=== PATIENT | male | born 1940 | race Caucasian/White ===

== ENCOUNTER 2017-07-13 07:13 | Day surgery (SDC) | payer BC ==
[2017-07-13] MEDS ORDERED: LR 1,000 ML IV ONE (07:35)
[2017-07-13] MEDS ORDERED: LIDOCAINE 1% 2 ML INJ ID PRN (07:35)
[2017-07-13] MEDS ORDERED: LIDOCAINE 2% 5 ML SDV ONE (08:28)
[2017-07-13] MEDS ORDERED: PROPOFOL 200 MG/20 ML VIAL ONE ×2 (08:28)
--- NOTE | 2017-07-13 09:40 | GPN ---
[f rep st] PROCEDURE NOTE Corrected report PREPROCEDURE DIAGNOSIS: Left lower abdominal pain. POSTPROCEDURE DIAGNOSES: 1. Mild left-sided diverticulosis. 2. A 2 mm polyp, status post removal. PROCEDURE: Colonoscopy with biopsies. ANESTHESIA: Monitored anesthesia care. COMPLICATIONS: None. BLOOD LOSS: Minimal. BIOPSIES TAKEN: Yes. INDICATIONS: The patient is a 76-year-old male with a history of left lower quadrant abdominal pain. He also has a history of polyps. He is here today for a diagnostic colonoscopy. The risks and benefits of the procedure were discussed with the patient. Consent obtained. Risks include but not limited to bleeding, perforation, aspiration, sedation. DESCRIPTION OF PROCEDURE: The adult colonoscope was advanced to the terminal ileum, which appeared normal. The ileocecal valve, appendiceal orifice, cecum appeared normal. There was a 2 mm polyp in the ascending colon, which was removed using cold biopsy forceps, sent off to Pathology. The hepatic flexure, transverse colon, splenic flexure, appeared normal. He had very mild left- sided diverticulosis. Retroflexed views in the rectum were normal. IMPRESSION: 1. A 2 mm polyp in ascending colon, status post removal. 2. Mild left-sided diverticulosis. RECOMMENDATIONS: 1. Advance diet as tolerated. 2. Discharge to home with escort. 3. High-fiber diet. Avoid constipation. 4. Follow up the final pathology results. Results available within 10 days. 5. Repeat colonoscopy in 5 years given personal history of polyps. Thank you for allowing me to participate in the care of your patient. Please do not hesitate to call with questions. /[id number]/MODL Alessandro acc#, 07/27/17, nelly GRADY
[2017-07-13 09:53] VITALS: TEMP 97.7
[2017-07-13 11:40] VITALS: BP 174/86; PULSE 55; RESP 17; O2SAT 97
== END 2017-07-13 11:24 | disposition home or self-care (01) ==
LOC: FSGY 07:13
PROVIDERS: ATTEND Internal Medicine Gastroenterology
PROC: 0DBK8ZX Excision of Ascending Colon, Via Natural or Artificial Opening Endoscopic, Diagnostic (ICD-10-PCS; principal; 2017-07-13 08:30)
DX: D12.2 Benign neoplasm of ascending colon (principal); K57.32 Diverticulitis of large intestine without perforation or abscess without bleeding
CPT/HCPCS: J2704

== ENCOUNTER 2017-08-07 22:51 | Inpatient (IN) | payer OTHER, BC ==
--- NOTE | 2017-08-07 23:04 | EDPHY ---
H & P Stated Complaint: cp HPI/ROS: Chief Complaint: Chest pain HPI: 76-year-old male with a past medical history of coronary artery disease status post NC and CABG who had 1 minutes of left-sided chest pain earlier this evening. It was an 8/10. He also developed some tingling in his fingers. He does not usually get chest pain or angina. Occasionally gets some shortness of breath at rest but none associated with this. He also felt very hot and flushed in his face. Did not come study. Pain resolved on its own prior to EMS arrival. They gave him 324 of aspirin. Right now is complaining of some GI upset secondary to the aspirin. Recent illness. No travel. No fevers or chills. No leg pain or swelling. No dyspnea on a exertion. Does have 2 pillow orthopnea which is stable for him. My ROS PMH: Coronary artery disease status post CABG, lung cancer, sleep apnea, COPD, diverticulitis, gastritis, osteoarthritis Social History: No smoking, occasional alcohol, no recreational drug use Family History: non-contributory Physical Exam: Gen: Awake, Alert, No Distress HEENT: Nose: no rhinorrhea Eyes: PERRLA, EOMI Mouth: Moist mucosa Neck: Supple, no JVD Chest: nontender, lungs clear to auscultation Heart: S1, S2 normal, no murmur Abd: Soft, non-tender, no guarding Back: no CVA tenderness, no midline tenderness Ext: no edema, non-tender Skin: no rash Neuro: CN II-XII intact, Sensation grossly intact, Strength 5/5 in bilateral upper and lower extremities - Personal History Current Tetanus Diphtheria and Acellular Pertussis (TDAP): Yes - Medical/Surgical History Hx Diabetes: No Other PMH: cagag, lung ca, arthritis,gastritis,diverticulitis - Social History Smoking Status: Former smoker Constitutional: Initial Vital Signs Temperature (C) 36.6 C 08/07/17 22:51 Heart Rate 62 08/07/17 22:51 Respiratory Rate 16 08/07/17 22:51 Blood Pressure 212/111 H 08/07/17 22:51 O2 Sat (%) 96 08/07/17 22:51 O2 Delivery Mode Room Air O2 (L/minute) 2 Allergies/Adverse Reactions: No Known Allergies Allergy (Unverified 08/07/17 22:55) Home Medications: Medication Instructions Recorded Aspirin [Aspirin 81mg (*)] 81 mg PO DAILY 06/10/17 Doxepin HCl [SINEquan 10 MG (*)] 10 mg PO HS 06/10/17 Herbals/Supplements -Info Only 1 ea PO DAILY 06/10/17 Metoprolol Succinate Xr [Toprol Xl 75 mg PO DAILY 06/10/17 50 mg (*)] Ramipril [Altace 2.5mg (*)] 2.5 mg PO DAILY 06/10/17 Rosuvastatin Calcium [Crestor 5mg] 5 mg PO DAILY 06/10/17 Zolpidem Tartrate [Ambien 10 mg] 10 mg PO HS 06/10/17 Hydrochlorothiazide 08/07/17 traZODone 08/07/17 Medical Decision Making - Diagnostics EKG Interpretation: ECG time 11:03 p.m., sinus rhythm with a rate of 57. Normal axis, there is a first-degree AV block. No acute ST or T-wave changes. ED Course/Re-evaluation: Patient is quite hypertensive. I have ordered 10 mg of labetalol intravenously. Will reassess. Patient's troponin is negative. He remains pain-free. Given his extensive cardiac history he is not low risk. He will be admitted to the hospital for further evaluation. I have discussed with Dr. Aguilar, hospitalist. He will admit to PCU for further monitoring, serial troponins. - Data Points Laboratory Results: Laboratory Results 08/07/17 22:55 08/07/17 22:55 08/07/17 08/07/17 22:55 22:55 WBC 8.46 10^3/uL 10^3/uL (3.80-9.50) RBC 4.11 10^6/uL L 10^6/uL (4.40-6.38) Hgb 13.4 g/dL L g/dL (13.7-17.5) Hct 38.0 % L % (40.0-51.0) MCV 92.5 fL fL (81.5-99.8) MCH 32.6 pg pg (27.9-34.1) MCHC 35.3 g/dL g/dL (32.4-36.7) RDW 13.8 % % (11.5-15.2) Plt Count 219 10^3/uL 10^3/uL (150-400) MPV 9.2 fL fL (8.7-11.7) Neut % (Auto) 71.7 % % (39.3-74.2) Lymph % (Auto) 16.2 % % (15.0-45.0) [place] % (Auto) 8.9 % % (4.5-13.0) Eos % (Auto) 1.3 % % (0.6-7.6) Baso % (Auto) 0.8 % % (0.3-1.7) Nucleat RBC Rel Count 0.0 % % (0.0-0.2) Absolute Neuts (auto) 6.07 10^3/uL 10^3/uL (1.70-6.50) Absolute Lymphs (auto) 1.37 10^3/uL 10^3/uL (1.00-3.00) Absolute Monos (auto) 0.75 10^3/uL 10^3/uL (0.30-0.80) Absolute Eos (auto) 0.11 10^3/uL 10^3/uL (0.03-0.40) Absolute Basos (auto) 0.07 10^3/uL 10^3/uL (0.02-0.10) Absolute Nucleated RBC 0.00 10^3/uL 10^3/uL (0-0.01) Immature Gran % 1.1 % % (0.0-1.1) Immature Gran # 0.09 10^3/uL 10^3/uL (0.00-0.10) Sodium 137 mEq/L mEq/L (134-144) Potassium 4.2 mEq/L mEq/L (3.5-5.2) Chloride 103 mEq/L mEq/L (97-110) Carbon Dioxide 22 mEq/l mEq/l (22-31) Anion Gap 12 mEq/L mEq/L (8-16) BUN 19 mg/dL mg/dL (7-23) Creatinine 0.8 mg/dL mg/dL (0.7-1.3) Estimated GFR > 60 Glucose 86 mg/dL mg/dL (70-100) Calcium 9.9 mg/dL mg/dL (8.5-10.4) Troponin I < 0.012 ng/mL ng/mL (0.000-0.034) Medications Given: Discontinued Medications Labetalol HCl (Labetalol Hcl) 10 mg IVP ONCE ONE Stop: 08/07/17 23:10 Last Admin: 08/07/17 23:45 Dose: 10 mg Departure - Departure Disposition: [facility] Inpatient Acute Clinical Impression: Chest pain, Hypertensive urgency Condition: Fair Referrals: Christoph Sweeney MD [Primary Care Provider] - As per Instructions
--- NOTE | 2017-08-07 23:05 | CPEKG ---
Heart Rate: 57 RR Interval: 1053 P-R Interval: 244 QRSD Interval: 88 QT Interval: 456 QTC Interval: 444 P [place]: 33 QRS [place]: -4 T Wave [place]: 55 EKG Severity - ABNORMAL ECG - EKG Impression: SINUS RHYTHM EKG Impression: FIRST DEGREE AV BLOCK Electronically Signed By: Stephen Portillo 08-Aug-2017 06:26:08
[2017-08-07] MEDS ORDERED: LABETALOL HCL 50 MG/10 ML SYR IVP ONE (23:09)
[2017-08-07 23:17] LABS: % IMMATURE GRANULYOCYTES 1.1 % (0.0-1.1); ABSOLUTE IMMATURE GRANULOCYTES 0.09 10^3/uL (0.00-0.10); ADD DIFF? NO; ADD MORPH? NO; ADD SCAN? NO; ATYPICAL LYMPHOCYTE FLAG 0 (0-99); FRAGMENT RBC FLAG 0 (0-99); HEMOGLOBIN 13.4 g/dL (13.7-17.5); LEFT SHIFT FLG 0 (0-99); LIPEMIA HEMOLYSIS FLAG 90 (0-99); MEAN CELL HEMOGLOBIN 32.6 pg (27.9-34.1); MEAN CELL HEMOGLOBIN CONCENTR. 35.3 g/dL (32.4-36.7); MEAN CELL VOLUME 92.5 fL (81.5-99.8); MEAN PLATELET VOLUME 9.2 fL (8.7-11.7); PLATELET CLUMPS FLAG 10 (0-99); PLATELET COUNT 219 10^3/uL (150-400); RED BLOOD CELL COUNT 4.11 10^6/uL (4.40-6.38); RED CELL DISTRIBUTION WIDTH 13.8 % (11.5-15.2)
[2017-08-07 23:27] LABS: ANION GAP 12 mEq/L (8-16); CALCIUM 9.9 mg/dL (8.5-10.4); CARBON DIOXIDE 22 mEq/l (22-31); CHLORIDE 103 mEq/L (97-110); CREATININE 0.8 mg/dL (0.7-1.3); GLOMERULAR FILTRATION RATE > 60; GLUCOSE 86 mg/dL (70-100); POTASSIUM 4.2 mEq/L (3.5-5.2); SODIUM 137 mEq/L (134-144)
[2017-08-07 23:38] LABS: TROPONIN I < 0.012 ng/mL (0.000-0.034)
[2017-08-07] MEDS ORDERED: MAG HYDROX/AL HYDROX/SIMETH 30 ML UDCUP PO ONE (23:57)
[2017-08-08] MEDS ORDERED: ONDANSETRON DISINTEGRATING 4 MG TAB PO PRN (00:34)
[2017-08-08] MEDS ORDERED: ONDANSETRON 4 MG/2 ML VIAL IVP PRN (00:34)
[2017-08-08] MEDS ORDERED: ACETAMINOPHEN 325 MG TAB PO PRN (00:34)
--- NOTE | 2017-08-08 00:59 | PDGENHP ---
History and Physical - Chief Complaint Chest pain - History of Present Illness 76 yo M w/ hx of CAD s/p CABG in 2002 as well as GERD presents after episode of chest pain. Around 8:30 PM on the night of admission patient experienced acute onset 7/10 left-sided chest pain without radiation or associated symptoms. This lasted about 1-2 minutes and abated spontaneously. Pain was not related to exertion or rest. He did have an espresso drink that afternoon, he usually only drinks decaf. His BP was severely elevated on arrival to ED (SBP>200). He states his BP is usually controlled with SBPs in 120 range. He also states this pain was very different than the pain that accompanied his PA in 2002. History Information - Allergies/Home Medication List Allergies/Adverse Reactions: No Known Allergies Allergy (Unverified 08/07/17 22:55) Home Medications: Aspirin [Aspirin 81mg (*)] 81 mg PO DAILY 06/10/17 [Last Taken 07/13/17] Doxepin HCl [SINEquan 10 MG (*)] 10 mg PO HS 06/10/17 [Last Taken 07/12/17] Herbals/Supplements -Info Only 1 ea PO DAILY 06/10/17 [Last Taken 07/12/17] Metoprolol Succinate Xr [Toprol Xl 50 mg (*)] 75 mg PO DAILY 06/10/17 [Last Taken 07/13/17] Ramipril [Altace 2.5mg (*)] 2.5 mg PO DAILY 06/10/17 [Last Taken 07/13/17] Rosuvastatin Calcium [Crestor 5mg] 5 mg PO DAILY 06/10/17 [Last Taken 07/13/17] Zolpidem Tartrate [Ambien 10 mg] 10 mg PO HS 06/10/17 [Last Taken 07/12/17] Hydrochlorothiazide 08/07/17 [Last Taken Unknown] traZODone 08/07/17 [Last Taken Unknown] I have personally reviewed and updated: family history, medical history - Past Medical History coronary artery disease, GERD - Surgical History Reports: coronary bypass surgery - Family History Positive for: CAD - Social History Smoking Status: Former smoker Alcohol Use: Occasionally Drug Use: None Review of Systems Review of Systems: ROS: 10pt was reviewed & negative except for what was stated in HPI & below Physical Exam Physical Exam: Temp Pulse Resp BP Pulse Ox 36.6 C 60 16 142/90 H 95 08/07/17 22:51 08/08/17 00:15 08/08/17 00:15 08/08/17 00:15 08/08/17 00:15 Constitutional: no apparent distress, appears nourished Eyes: PERRL, EOMI Ears, Nose, Mouth, Throat: moist mucous membranes, no oral mucosal ulcers Cardiovascular: regular rate and rhythym, systolic murmur Respiratory: no respiratory distress, no rales or rhonchi Gastrointestinal: normoactive bowel sounds, soft, non-tender abdomen Skin: warm, normal color Musculoskeletal: full muscle strength, no muscle tenderness Neurologic: AAOx3, CN II-XII Intact Psychiatric: interacting appropriately, not anxious Lab Data & Imaging Review 08/07/17 22:55 08/07/17 22:55 WBC 8.46 10^3/uL (3.80-9.50) 08/07/17 22:55 RBC 4.11 10^6/uL (4.40-6.38) L 08/07/17 22:55 Hgb 13.4 g/dL (13.7-17.5) L 08/07/17 22:55 Hct 38.0 % (40.0-51.0) L 08/07/17 22:55 MCV 92.5 fL (81.5-99.8) 08/07/17 22:55 MCH 32.6 pg (27.9-34.1) 08/07/17 22:55 MCHC 35.3 g/dL (32.4-36.7) 08/07/17 22:55 RDW 13.8 % (11.5-15.2) 08/07/17 22:55 Plt Count 219 10^3/uL (150-400) 08/07/17 22:55 MPV 9.2 fL (8.7-11.7) 08/07/17 22:55 Neut % (Auto) 71.7 % (39.3-74.2) 08/07/17 22:55 Lymph % (Auto) 16.2 % (15.0-45.0) 08/07/17 22:55 [place] % (Auto) 8.9 % (4.5-13.0) 08/07/17 22:55 Eos % (Auto) 1.3 % (0.6-7.6) 08/07/17 22:55 Baso % (Auto) 0.8 % (0.3-1.7) 08/07/17 22:55 Nucleat RBC Rel Count 0.0 % (0.0-0.2) 08/07/17 22:55 Absolute Neuts (auto) 6.07 10^3/uL (1.70-6.50) 08/07/17 22:55 Absolute Lymphs (auto) 1.37 10^3/uL (1.00-3.00) 08/07/17 22:55 Absolute Monos (auto) 0.75 10^3/uL (0.30-0.80) 08/07/17 22:55 Absolute Eos (auto) 0.11 10^3/uL (0.03-0.40) 08/07/17 22:55 Absolute Basos (auto) 0.07 10^3/uL (0.02-0.10) 08/07/17 22:55 Absolute Nucleated RBC 0.00 10^3/uL (0-0.01) 08/07/17 22:55 Immature Gran % 1.1 % (0.0-1.1) 08/07/17 22:55 Immature Gran # 0.09 10^3/uL (0.00-0.10) 08/07/17 22:55 Sodium 137 mEq/L (134-144) 08/07/17 22:55 Potassium 4.2 mEq/L (3.5-5.2) 08/07/17 22:55 Chloride 103 mEq/L (97-110) 08/07/17 22:55 Carbon Dioxide 22 mEq/l (22-31) 08/07/17 22:55 Anion Gap 12 mEq/L (8-16) 08/07/17 22:55 BUN 19 mg/dL (7-23) 08/07/17 22:55 Creatinine 0.8 mg/dL (0.7-1.3) 08/07/17 22:55 Estimated GFR > 60 08/07/17 22:55 Glucose 86 mg/dL (70-100) 08/07/17 22:55 Calcium 9.9 mg/dL (8.5-10.4) 08/07/17 22:55 Troponin I < 0.012 ng/mL (0.000-0.034) 08/07/17 22:55 EKG Interpretation: Positive for: normal sinsus rhythm, NS ST wave abnormalities Assessment & Plan Assessment: 76 yo M w/ hx of CAD and GERD presents with episode of chest pain and uncontrolled hypertension. Plan: 1. Chest pain - Rather atypical from an anginal standpoint noting that it was brief (1-2 min) and not associated with exertion. BP severely elevated on arrival to ED, which may be related to the pain. Troponin negative and ECG without signs of ischemia on admission. - S/p ASA 325 x1 - Trend cardiac enzymes - Control BP - Monitor on telemetry 2. Uncontrolled HTN - SBP>200 on arrival to the ED, patient states usually well controlled with ramipril 2.5 mg qD and Toprol XL 50 mg qD. BP elevation perhaps related to caffeine ingestion, which is unusual for patient. - Will use PRN medications to maintain SBP <170 overnight 3. Hx CAD s/p CABG - CABG in 2002, patient denies significant issues since. On ASA, BB, DESIREE, and statin as outpatient. Followed by Dr. Ruelas as an outpatient. - Continue home medications FEN - NPO Code - Full Ppx - LMWH Dispo - Admit to observation status
[2017-08-08 05:08] LABS: ABSOLUTE IMMATURE GRANULOCYTES 0.07 10^3/uL (0.00-0.10); ADD DIFF? NO; ADD MORPH? NO; ADD SCAN? NO; ATYPICAL LYMPHOCYTE FLAG 0 (0-99); FRAGMENT RBC FLAG 0 (0-99); HEMATOCRIT 34.8 % (40.0-51.0); HEMOGLOBIN 12.3 g/dL (13.7-17.5); LEFT SHIFT FLG 0 (0-99); LIPEMIA HEMOLYSIS FLAG 90 (0-99); MEAN CELL HEMOGLOBIN 32.8 pg (27.9-34.1); MEAN CELL HEMOGLOBIN CONCENTR. 35.3 g/dL (32.4-36.7); MEAN CELL VOLUME 92.8 fL (81.5-99.8); MEAN PLATELET VOLUME 9.2 fL (8.7-11.7); PLATELET CLUMPS FLAG 10 (0-99); PLATELET COUNT 180 10^3/uL (150-400); RED BLOOD CELL COUNT 3.75 10^6/uL (4.40-6.38); RED CELL DISTRIBUTION WIDTH 13.7 % (11.5-15.2)
[2017-08-08 05:23] LABS: ANION GAP 9 mEq/L (8-16); CALCIUM 9.3 mg/dL (8.5-10.4); CARBON DIOXIDE 23 mEq/l (22-31); CHLORIDE 106 mEq/L (97-110); CREATININE 0.8 mg/dL (0.7-1.3); GLOMERULAR FILTRATION RATE > 60; GLUCOSE 85 mg/dL (70-100); MAGNESIUM 2.1 mg/dL (1.6-2.3); POTASSIUM 4.8 mEq/L (3.5-5.2); SODIUM 138 mEq/L (134-144)
[2017-08-08 05:32] LABS: TROPONIN I < 0.012 ng/mL (0.000-0.034)
[2017-08-08] MEDS ORDERED: LABETALOL HCL 200 MG TAB PO ONE (07:10)
[2017-08-08] MEDS: ENOXAPARIN 40 MG/0.4 ML SYR SC SCH (08:20)
[2017-08-08] MEDS ORDERED: RAMIPRIL 2.5 MG CAP PO SCH (10:30)
[2017-08-08] MEDS: ASPIRIN 81 MG CHEWABLE TAB PO SCH (11:44)
[2017-08-08] MEDS: METOPROLOL SUCCINATE XR 50 MG TAB PO SCH (11:44)
[2017-08-08] MEDS ORDERED: RAMIPRIL 2.5 MG CAP PO ONE (12:59)
[2017-08-08] MEDS ORDERED: hydrALAZINE 25 MG TAB PO PRN (13:02)
[2017-08-08] MEDS ORDERED: LABETALOL HCL 5 MG/ML 20 ML MDV IVP PRN (13:03)
--- NOTE | 2017-08-08 13:06 | HOSPPROG ---
Hospitalist Progress Note Assessment/Plan: # Chest pain - BP severely elevated on arrival to ED, which may have precipitated his pain. Troponin negative x2, ECG non-ischemic. - cont daily ASA, statin - check lipid panel in am - cont telemetry monitoring - stress test deferred to tomorrow am when BP hopefully better controlled # Hypertensive urgency - BP's still quite elevated - Cont Toprol (HR 50's-60's) - double Enalapril dose, extra dose now and increase in am - PRN hydralazine for sbp >160 - cont to up-titrate meds, consider addition of norvasc if 3rd agent needed # Hx CAD s/p CABG in 2002 - On ASA, BB, DESIREE, and statin as outpatient. Followed by Dr. Ruelas. - Continue home medications - check lipid status Code - Full DVT PPLX - LMWH Dispo - Change to inpt for ongoing management of hypertensive urgency and further risk stratification of chest pain Subjective: Pt feels well. No more chest pain. Denies SOB, dizziness or palpitations. No complaints. He is comfortable, visiting with friends at his bedside. Objective: Vital Signs Temp Pulse Resp BP Pulse Ox 36.6 C 65 16 193/97 H 95 08/08/17 12:00 08/08/17 12:00 08/08/17 12:00 08/08/17 12:00 08/08/17 12:00 Laboratory Results 08/08/17 04:06 08/08/17 04:06 08/07/17 08/08/17 08/09/17 05:59 05:59 05:59 Intake Total 50 Balance 50 - Physical Exam Constitutional: no apparent distress Eyes: PERRL Ears, Nose, Mouth, Throat: moist mucous membranes Cardiovascular: regular rate and rhythym, no murmur, rub, or gallop Respiratory: no respiratory distress, clear to auscultation Gastrointestinal: normoactive bowel sounds, soft, non-tender abdomen Skin: warm Musculoskeletal: full muscle strength Neurologic: AAOx3 Psychiatric: interacting appropriately ICD10 Worksheet Patient Problems: Problems Problem Status Onset Chest pain Acute Hypertensive urgency Acute
--- NOTE | 2017-08-08 14:40 | ASMTCMCOM ---
CM Note CM Note Notes: Reviewed chart re: d/c poc, pt's progress. Pt admitted w/ CP, severely elevated BP, hypertensive urgency w/ hx of CAD and CABG. Per MD notes, pt to have a stress test on Wed08/09/17, if symptoms improve. Pt lives alone. Anticipate pt will likely d/c home independently when medically stable. CM will cont to follow for potential needs. Date Signed: 08/08/2017 02:39 PM Electronically Signed By:Bee Macedo RN
[2017-08-08] MEDS ORDERED: ZOLPIDEM TARTRATE 5 MG TAB PO SCH (21:00)
[2017-08-08] MEDS ORDERED: NON-FORMULARY NEW DRUG (Zolpidem Tartrate [Ambien 10 Mg] 10 MG) PO SCH (21:00)
[2017-08-08] MEDS ORDERED: MELATONIN 3 MG TAB PO SCH (21:00)
[2017-08-08] MEDS ORDERED: NON-FORMULARY NEW DRUG (Rosuvastatin Calcium [Crestor 5mg] 5 MG) PO SCH (21:00)
[2017-08-08] MEDS ORDERED: NON-FORMULARY NEW DRUG (Melatonin [Melatonin 5 Mg] 5 MG) PO SCH (21:00)
[2017-08-08] MEDS: ROSUVASTATIN CALCIUM 10 MG TAB PO SCH (23:59)
[2017-08-09] MEDS ORDERED: FLU VACC QS 2017-18 (3YR+)/PF 0.5 ML SYR (FLUARIX QUAD) IM ONE ×2 (01:18→16:00)
[2017-08-09 04:10] LABS: CHOLESTEROL 122 mg/dL (140-220); HIGH DENSITY LIPOPROTEIN 47 mg/dL (40-65); LDL/HDL RATIO 1.26 RATIO (1.00-3.64); LOW DENSITY LIPOPROTEIN 59 mg/dL (80-100); NON-HIGH DENSITY LIPOPROTEIN 75 mg/dL (90-129); TRIGLYCERIDE 84 mg/dL (40-150); VERY LOW DENSITY LIPOPROTEINS 16 mg/dL (8-25)
[2017-08-09 04:21] VITALS: O2SAT 94
[2017-08-09] MEDS: ASPIRIN 81 MG CHEWABLE TAB PO SCH (08:22)
[2017-08-09] MEDS: METOPROLOL SUCCINATE XR 50 MG TAB PO SCH (08:24)
[2017-08-09] MEDS ORDERED: RAMIPRIL 2.5 MG CAP PO SCH (09:00)
[2017-08-09] MEDS ORDERED: REGADENOSON 0.4 MG/5 ML SYR IVP ONE (09:48)
--- NOTE | 2017-08-09 11:31 | CPR ---
[f rep st] NONINVASIVE CARDIAC PROCEDURE REPORT DATE OF PROCEDURE: 08/09/2017 PROCEDURE PERFORMED: Nuclear Lexiscan stress test. REASON FOR TEST: 1. Chest pain. 2. History of coronary artery disease with CABG. RESTING: EKG showed a regular sinus rhythm with a first-degree AV block. No ischemic changes noted. His resting blood pressure 164/98, resting heart rate 63, oxygen saturation 98%. There were no isc hemic changes on EKG. He was asymptomatic. STRESS: Lexiscan nuclear stress test: Lexiscan was injected rapidly, followed by saline flush. Car diolite was then injected, followed by saline flush. His blood pressure was 124/70, peak heart rate 82, oxygen saturation 100%. He did feel shortness of breath just after the injection. He declined c affeine. His EKG remained stable. RECOVERY: The shortness of breath improved; however, he felt a headache coming on. He again refused caffeine at this time. Resting recovery blood pressure 158/82, oxygen saturation 99%, heart rate 78 . At this time, he currently is stable for nuclear imaging. /[id number]/MODL
[2017-08-09 11:46] VITALS: BP 123/67; PULSE 69; TEMP 97.5
[2017-08-09 12:21] VITALS: RESP 16
[2017-08-09] MEDS ORDERED: PNEUMOC 13-VAL CONJ-DIP CRM/PF 0.5 ML SYR IM ONE (15:09)
[2017-08-09] MEDS: ENOXAPARIN 40 MG/0.4 ML SYR SC SCH (16:02)
--- NOTE | 2017-08-09 19:32 | GDS ---
[f rep st] DISCHARGE SUMMARY DISCHARGE DIAGNOSES: Include: 1. Acute chest pain, thought nonischemic in origin. 2. Hypertensive urgency. 3. Coronary artery disease, status post coronary artery bypass graft in 2002. HISTORY OF PRESENT ILLNESS: A 76-year-old male who presents to the hospital with known coronary william ry disease with chest pain. For details of patient's initial presentation, please see the History an d Physical dated 08/08/2017. CONSULTATIVE SERVICES: None. PROCEDURES: On 08/09/2017, patient had a myocardial perfusion scan that showed normal LV ejection fr action of 69% with no focal wall motion abnormalities or inducible ischemia. HOSPITAL COURSE: By issue: 1. Chest pain. Patient was admitted to PCU, had serial troponins and EKGs. The patient awaited imp roved blood pressure control for effective cardiac stress testing. On the day of disposition, had an effective nuclear imaging stress test that showed no inducible ischemia with normal ejection fractio n and wall motion. He will be discharged on his normal coronary artery disease regimen and outpatien t cardiology followup. 2. Hypertensive urgency. The patient did have markedly elevated blood pressures on initial presenta tion. He was given enalapril as well as metoprolol, and had steady improvement of his pressures. On the day of disposition, his blood pressures have remained controlled, ranging in the 120s to 160s on his home regimen. He will be discharged on these medications with, again, outpatient followup for b lood pressure control. MEDICATIONS AT TIME OF DISPOSITION: Please reference medication reconciliation form printed on 08/09. Of note, no changes were made to the patient's med regimen. FOLLOWUP APPOINTMENTS: Include with his outpatient electrical and instrumentation mechanic, Dr. Soto in the next 2-3 weeks fo r blood pressure check and post discharge followup. I spent greater than 30 minutes in the planning and coordination of this discharge. /[id number]/MODL
[2017-08-09] MEDS: ROSUVASTATIN CALCIUM 10 MG TAB PO SCH (19:42)
== END 2017-08-09 20:54 | disposition home or self-care (01) | DRG 313 ==
LOC: EDUNIT# → F2W 08-08 01:22 → OBSVTOIN 08-08 15:00
PROVIDERS: ADMIT Student in an Organized Health Care Education/Training Program; ATTEND Student in an Organized Health Care Education/Training Program
DX: R07.89 Other chest pain (principal); I16.0 Hypertensive urgency; I25.10 Atherosclerotic heart disease of native coronary artery without angina pectoris; I25.2 Old myocardial infarction; J44.9 Chronic obstructive pulmonary disease, unspecified; G47.30 Sleep apnea, unspecified; Z95.1 Presence of aortocoronary bypass graft; Z85.118 Personal history of other malignant neoplasm of bronchus and lung; Z87.891 Personal history of nicotine dependence
CPT/HCPCS: 96374; A9500; G0008; G0009; J1650; J2785

== ENCOUNTER 2017-09-23 12:45 | Emergency (ER) | payer OTHER, BC ==
[2017-09-23 13:00] VITALS: TEMP 98.4
[2017-09-23] MEDS ORDERED: NS 1,000 ML IV ONE (13:09)
--- NOTE | 2017-09-23 13:12 | EDPHY ---
H & P Stated Complaint: orthostatic hypotension in MD office today Time Seen by Provider: 09/23/17 13:03 HPI/ROS: CHIEF COMPLAINT: Syncope, head trauma HISTORY OF PRESENT ILLNESS: The patient is a 76-year-old man who last night was taking his Spiriva inhaler. He inhaled and held his breath for 30 seconds this he normally does. He then fainted and woke up on the ground. He hit the back of his head. He denies headache or neck pain. He denies chest pain or shortness of breath. He has a history of emphysema which she states is a baseline. No recent cough or fevers. He was seen by his primary earlier today who was concerned about this story. They found him to have orthostatic vital signs and called an ambulance to bring him here. The patient currently is without pain. He did report some chest pressure last night just prior to fainting but none since then. No focal weakness or numbness. REVIEW OF SYSTEMS: Constitutional: denies: chills, fever, recent illness, recent injury EENTM: denies: blurred vision, double vision, nose congestion Respiratory: denies: cough, shortness of breath Cardiac: See HPI Gastrointestinal/Abdominal: denies: abdominal pain, diarrhea, nausea, vomiting, blood streaked stools Genitourinary: denies: dysuria, frequency, hematuria, pain Musculoskeletal: denies: joint pain, muscle pain Skin: denies: lesions, rash, jaundice, bruising Neurological: denies: headache, numbness, paresthesia, tingling, dizziness, weakness Hematologic/Lymphatic: denies: blood clots, easy bleeding, easy bruising Immunologic/allergic: denies: HIV/AIDS, transplant EXAM: GENERAL: Well-appearing, well-nourished and in no acute distress. HEAD: Small contusion left occiput, Atraumatic, normocephalic. EYES: Pupils equal round and reactive to light, extraocular movements intact, sclera anicteric, conjunctiva are normal. ENT: TMs normal, nares patent, oropharynx slightly dry . NECK: Normal range of motion, supple without lymphadenopathy or JVD. LUNGS: Breath sounds clear to auscultation bilaterally and equal. No wheezes rales or rhonchi. HEART: Regular rate and rhythm without murmurs, rubs or gallops. ABDOMEN: Soft, nontender, normoactive bowel sounds. No guarding, no rebound. No masses appreciated. BACK: No CVA tenderness, no spinal tenderness, step-offs or deformities EXTREMITIES: Normal range of motion, no pitting or edema. No clubbing or cyanosis. NEUROLOGICAL: Cranial nerves II through XII grossly intact. Normal speech, normal gait. 5/5 strength, normal movement in all extremities, normal sensation PSYCH: Normal mood, normal affect. SKIN: Warm, dry, normal turgor, no visible rashes or lesions. Source: Patient Exam Limitations: No limitations - Personal History Current Tetanus Diphtheria and Acellular Pertussis (TDAP): Yes - Medical/Surgical History Hx Asthma: No Hx Chronic Respiratory Disease: Yes Hx Diabetes: No Hx Cardiac Disease: Yes Hx Renal Disease: No Hx Cirrhosis: No Hx Alcoholism: No Hx HIV/AIDS: No Hx Splenectomy or Spleen Trauma: No Other PMH: ANGELA, CABG; GERD, lung ca, arthritis,gastritis,diverticulitis; COPD - Family History Significant Family History: No pertinent family hx - Social History Smoking Status: Former smoker Alcohol Use: Sober Drug Use: None Constitutional: Initial Vital Signs Temperature (C) 36.9 C 09/23/17 12:45 Heart Rate 73 09/23/17 12:45 Respiratory Rate 18 09/23/17 12:45 Blood Pressure 159/65 H 09/23/17 12:45 O2 Sat (%) 94 09/23/17 12:45 O2 Delivery Mode Room Air Allergies/Adverse Reactions: No Known Allergies Allergy (Unverified 08/07/17 22:55) Home Medications: Medication Instructions Recorded Aspirin [Aspirin 81mg (*)] 81 mg PO DAILY 06/10/17 Herbals/Supplements -Info Only 1 ea PO DAILY 06/10/17 Ramipril [Altace 2.5mg (*)] 2.5 mg PO DAILY 06/10/17 Rosuvastatin Calcium [Crestor 5mg] 5 mg PO HS 06/10/17 Doxepin HCl 0.3 ml PO HS 08/08/17 Melatonin [Melatonin 5 mg] 5 mg PO HS 08/08/17 Metoprolol Succinate Xr [Toprol Xl 75 mg PO DAILY 08/08/17 50 mg (*)] Zolpidem Tartrate [Ambien 10 mg] 10 mg PO HS 08/08/17 Loperamide HCl [Imodium 2 mg (*)] 2 mg PO PRN PRN 09/05/17 Medical Decision Making - Diagnostics EKG Interpretation: An EKG obtained and was read and documented in trace view. Please see trace view for full reading and report. Sinus rhythm, bradycardic, first-degree block similar to previous ED Course/Re-evaluation: Head CT ordered in this adult patient for trauma for the following indication: age greater than 65, fall 2:45 p.m. we discussed the imaging and lab results. The patient is relieved. He would like to go home. We will perform orthostatic testing. He was clinically dehydrated prior to arrival. 2:50 p.m. the patient is ambulating without difficulty. He is eager to go home. He declines further observation or admission. Differential Diagnosis: Partial list of the Differential diagnosis considered include but were not limited to; syncope, arrhythmia, dehydration and although unlikely based on the history and physical exam, I also considered intracranial injury, neck injury, acute coronary disease. I discussed these differential diagnoses and the plan with the patient as well as the usual and expected course. The patient understands that the diagnosis is provisional and that in medicine we are not always correct and that further workup is often warranted. Usual and customary warnings were given. All of the patient's questions were answered. The patient was instructed to return to the emergency department should the symptoms at all worsen or return, otherwise to followup with the physician as we discussed. - Data Points Laboratory Results: Laboratory Results 09/23/17 13:05 09/23/17 13:05 Medications Given: Discontinued Medications Sodium Chloride (Ns) 1,000 mls @ 0 mls/hr IV EDNOW ONE; Wide Open PRN Reason: Protocol Stop: 09/23/17 13:10 Last Admin: 09/23/17 13:38 Dose: 1,000 mls Departure - Departure Disposition: Home, Routine, Self-Care Clinical Impression: Dehydration, Syncope and collapse Condition: Fair Instructions: Dehydration (ED), Syncope (ED) Referrals: Patient,NotPresent [Unknown] - As per Instructions Christoph Roblero DO [Medical Doctor] - As per Instructions
[2017-09-23 13:16] LABS: % IMMATURE GRANULYOCYTES 0.7 % (0.0-1.1); ABSOLUTE IMMATURE GRANULOCYTES 0.05 10^3/uL (0.00-0.10); ADD DIFF? NO; ADD MORPH? NO; ADD SCAN? NO; ATYPICAL LYMPHOCYTE FLAG 10 (0-99); FRAGMENT RBC FLAG 0 (0-99); HEMATOCRIT 31.4 % (40.0-51.0); HEMOGLOBIN 11.1 g/dL (13.7-17.5); LEFT SHIFT FLG 0 (0-99); LIPEMIA HEMOLYSIS FLAG 90 (0-99); MEAN CELL HEMOGLOBIN 33.1 pg (27.9-34.1); MEAN CELL HEMOGLOBIN CONCENTR. 35.4 g/dL (32.4-36.7); MEAN CELL VOLUME 93.7 fL (81.5-99.8); MEAN PLATELET VOLUME 8.8 fL (8.7-11.7); PLATELET CLUMPS FLAG 70 (0-99); PLATELET COUNT 191 10^3/uL (150-400); RED BLOOD CELL COUNT 3.35 10^6/uL (4.40-6.38); RED CELL DISTRIBUTION WIDTH 13.8 % (11.5-15.2)
[2017-09-23 13:25] LABS: INR 0.98 (0.83-1.16); PROTIME(PATIENT) 12.9 SEC (12.0-15.0)
[2017-09-23 13:26] LABS: APTT 22.4 SEC (23.0-38.0)
[2017-09-23 13:31] LABS: ANION GAP 9 mEq/L (8-16); CALCIUM 9.6 mg/dL (8.5-10.4); CARBON DIOXIDE 28 mEq/l (22-31); CHLORIDE 102 mEq/L (97-110); GLOMERULAR FILTRATION RATE > 60; GLUCOSE 80 mg/dL (70-100); POTASSIUM 4.1 mEq/L (3.5-5.2); SODIUM 139 mEq/L (134-144)
[2017-09-23 13:43] LABS: TROPONIN I 0.026 ng/mL (0.000-0.034)
--- NOTE | 2017-09-23 13:49 | CPEKG ---
Heart Rate: 58 RR Interval: 1034 P-R Interval: 276 QRSD Interval: 98 QT Interval: 456 QTC Interval: 448 P Bixby: 0 QRS Bixby: 11 T Wave Bixby: 53 EKG Severity - ABNORMAL ECG - EKG Impression: SINUS RHYTHM EKG Impression: FIRST DEGREE AV BLOCK Electronically Signed By: Fredy Lewis 23-Sep-2017 13:58:36
[2017-09-23 15:06] VITALS: BP 142/96; PULSE 65; RESP 16; O2SAT 97
== END 2017-09-23 15:04 | disposition home or self-care (01) ==
LOC: EDUNIT#
DX: S00.83XA Contusion of other part of head, initial encounter (principal); W01.198A Fall on same level from slipping, tripping and stumbling with subsequent striking against other object, initial encounter; R55 Syncope and collapse; E86.0 Dehydration; E86.9 Volume depletion, unspecified; J44.9 Chronic obstructive pulmonary disease, unspecified; Z95.1 Presence of aortocoronary bypass graft; Z85.118 Personal history of other malignant neoplasm of bronchus and lung; Z87.891 Personal history of nicotine dependence; Z79.82 Long term (current) use of aspirin

== ENCOUNTER 2017-10-06 05:17 | Inpatient (IN) | payer OTHER, BC ==
[2017-10-06] MEDS ORDERED: ceFAZolin 2 GM/SWFI 2 GM/20 ML SYR IVP ONE (05:59)
[2017-10-06] MEDS ORDERED: FAMOTIDINE 20 MG TAB PO ONE (05:59)
[2017-10-06] MEDS ORDERED: ACETAMINOPHEN 325 MG TAB PO ONE (05:59)
[2017-10-06] MEDS ORDERED: DEXAMETHASONE 4 MG/ML VIAL IVP ONE (05:59)
[2017-10-06] MEDS ORDERED: ROPIVACAINE 0.2% 80 MG, EPINEPHrine 0.2 MG, KETOROLAC TROMETHAMINE 30 MG in SYRINGE 0 ML IU ONE (06:00)
[2017-10-06] MEDS ORDERED: POVIDONE-IODINE 20 ML in SODIUM CL IRRIG SOLUTION 500 ML IRR ONE (06:00)
[2017-10-06] MEDS ORDERED: LR 1,000 ML IV ONE (06:00)
[2017-10-06] MEDS ORDERED: TRANEXAMIC ACID 800 MG in NS 100 ML IV ONE (06:00)
[2017-10-06] MEDS ORDERED: LIDOCAINE 1% 2 ML INJ ID PRN (06:00)
[2017-10-06] MEDS ORDERED: ceFAZolin 1 GM/5 ML SYR ONE (06:17)
[2017-10-06] MEDS ORDERED: VANCOMYCIN 1 GM VIAL ONE (06:18)
--- NOTE | 2017-10-06 06:59 | PDHPUP ---
History & Physical Update H&P update statement: This history and physical update is based on an assessment of the patient which was completed after admission or registration (within 24 hours), but prior to the surgery/procedure. H&P update: H&P reviewed & patient examined, no change in patient's condition since H&P completed
[2017-10-06] MEDS ORDERED: MIDAZOLAM 2 MG/2 ML VIAL IVP ONE (07:08)
[2017-10-06] MEDS ORDERED: MIDAZOLAM 2 MG/2 ML VIAL ONE ×2 (07:09→07:16)
--- NOTE | 2017-10-06 07:10 | PDANEPAE ---
ANE Past Medical History - Cardiovascular History Hx Hypertension: Yes Hx Arrhythmias: No Hx Chest Pain: No Hx Coronary Artery / Peripheral Vascular Disease: Yes Hx CHF / Valvular Disease: No Hx Palpitations: No Cardiovascular History Comment: GABG X4 - Pulmonary History Hx COPD: Yes Hx Asthma/Reactive Airway Disease: No Hx Recent Upper Respiratory Infection: Yes Hx Oxygen in Use at Home: No Hx Sleep Apnea: Yes Sleep Apnea Screening Result - Last Documented: Positive Pulmonary History Comment: lung Ca 2010 chemo/radiation. LUNG INFECTION BEGAN RX 06/02. HEMOPTYSIS. ANGELA USES HS OXYGEN with CPAP. not portable - Neurologic History Hx Cerebrovascular Accident: No Hx Seizures: No Hx Dementia: No - Endocrine History Hx Diabetes: No - Renal History Hx Renal Disorders: No - Liver History Hx Hepatic Disorders: No - Neurological & Psychiatric Hx Hx Neurological and Psychiatric Disorders: No - Cancer History Hx Cancer: Yes Cancer History Comment: LUNG - Congenital Disorder History Hx Congenital Disorders: No - GI History Hx Gastrointestinal Disorders: Yes Gastrointestinal History Comment: DIVERTICULOSIS - Other Health History Other Health History: INSOMNIA - Chronic Pain History Chronic Pain: No - Surgical History Prior Surgeries: RT TOTAL KNEE 2012. CABG X4 05/2003. HERNIA. WRIST. HEMORRHOIDS. APPENDECTOMY. TONSILLECTOMY ANE Review of Systems Review of Systems: - Exercise capacity METS (RN): 4 METS ANE Patient History - Allergies Allergies/Adverse Reactions: No Known Allergies Allergy (Unverified 08/07/17 22:55) - Home Medications Home Medications: Aspirin [Aspirin 81mg (*)] 81 mg PO DAILY 06/10/17 [Last Taken 09/29/17] Herbals/Supplements -Info Only 1 ea PO DAILY 06/10/17 [Last Taken 10/05/17 23:00 ] Ramipril [Altace 2.5mg (*)] 2.5 mg PO DAILY 06/10/17 [Last Taken 10/06/17 03:30] Rosuvastatin Calcium [Crestor 5mg] 5 mg PO HS 06/10/17 [Last Taken 10/06/17 03: 30] Doxepin HCl 0.3 ml PO HS 08/08/17 [Last Taken 10/05/17 23:55] Melatonin [Melatonin 5 mg] 5 mg PO HS 08/08/17 [Last Taken 10/05/17 23:55] Metoprolol Succinate Xr [Toprol Xl 50 mg (*)] 75 mg PO DAILY 08/08/17 [Last Taken 10/06/17 03:30] Zolpidem Tartrate [Ambien 10 mg] 10 mg PO HS 08/08/17 [Last Taken 10/05/17 23:00 ] Loperamide HCl [Imodium 2 mg (*)] 2 mg PO PRN PRN 09/05/17 [Last Taken 10/06/17 03:30] - NPO status NPO Since - Liquids (Date): 10/06/17 NPO Since - Liquids (Time): 03:30 NPO Since - Solids (Date): 10/05/17 NPO Since - Solids (Time): 19:00 - Smoking Hx Smoking Status: Former smoker - Family Anes Hx Family Hx Anesthesia Complications: none ANE Labs/Vital Signs - Vital Signs Blood Pressure: 158/82 Heart Rate: 54 Respiratory Rate: 16 O2 Sat (%): 97 Height: 175.26 cm Weight: 80.739 kg ANE Physical Exam - Airway Neck exam: decreased ROM Mallampati Score: Class 3 Mouth exam: normal dental/mouth exam - Pulmonary Pulmonary: no respiratory distress, no rales or rhonchi - Cardiovascular Cardiovascular: regular rate and rhythym - ASA Status ASA Status: III (pt has ANGELA CAD and refuses to have SAB, consent for GA given)
[2017-10-06] MEDS ORDERED: PROPOFOL/EMULSION 500 MG/50 ML BOTTLE IV ONE ×2 (07:16→08:40)
[2017-10-06] MEDS ORDERED: fentaNYL 100 MCG/2 ML INJ ONE (07:16)
[2017-10-06] MEDS ORDERED: NALOXONE HCL 0.4 MG/ML INJ IVP PRN (08:32)
[2017-10-06] MEDS ORDERED: ONDANSETRON 4 MG/2 ML VIAL IVP PRN ×2 (08:32→09:16)
--- NOTE | 2017-10-06 08:56 | POSTOPPROG ---
Post Op Note Date of Operation: 10/06/17 Surgeon: German Malik Reel Cutter: Marlee Pulliam Anesthesia: GET(General Endotracheal) Post-op Diagnosis: Left knee severe degenerative arthritis. Procedure: Left total knee arthroplasty. Inf/Abcess present in the surg proc area at time of surgery?: No EBL: 50-100 (Adductor canal block in PACU)
[2017-10-06] MEDS ORDERED: ONDANSETRON 4 MG/2 ML VIAL ONE (09:15)
[2017-10-06] MEDS ORDERED: PHENYLEPHRINE HCL 100 MCG/ML SYR ONE (09:15)
[2017-10-06] MEDS ORDERED: LABETALOL HCL 5 MG/ML 20 ML MDV ONE (09:15)
[2017-10-06] MEDS ORDERED: KETOROLAC 30 MG/1 ML SDV ONE (09:15)
[2017-10-06] MEDS ORDERED: DEXAMETHASONE 4 MG/ML VIAL ONE (09:15)
[2017-10-06] MEDS ORDERED: RANITIDINE 50 MG/2 ML VIAL ONE (09:15)
[2017-10-06] MEDS ORDERED: ROPIVACAINE HCL 150 MG/30 ML INJ ONE (09:15)
[2017-10-06] MEDS ORDERED: hydrALAZINE 20 MG/ML VIAL ONE (09:15)
[2017-10-06] MEDS ORDERED: BISACODYL 10 MG SUPP PR PRN (09:16)
[2017-10-06] MEDS ORDERED: MAGNESIUM HYDROXIDE 30 ML UDCUP PO PRN (09:16)
[2017-10-06] MEDS ORDERED: NS 500 ML IV PRN (09:16)
[2017-10-06] MEDS ORDERED: PROMETHAZINE HCL 25 MG/ML INJ IVP PRN (09:16)
[2017-10-06] MEDS ORDERED: diphenhydrAMINE 25 MG CAP PO PRN (09:16)
[2017-10-06] MEDS ORDERED: PROMETHAZINE HCL 25 MG SUPPR PR PRN (09:16)
[2017-10-06] MEDS ORDERED: traMADol 50 MG TAB PO PRN (09:16)
[2017-10-06] MEDS ORDERED: CYCLOBENZAPRINE 10 MG TAB PO PRN (09:16)
[2017-10-06] MEDS ORDERED: METOCLOPRAMIDE 10 MG/2 ML VIAL IVP PRN (09:16)
[2017-10-06] MEDS ORDERED: KETOROLAC 30 MG/1 ML SDV IVP PRN (09:16)
[2017-10-06] MEDS ORDERED: ONDANSETRON DISINTEGRATING 4 MG TAB PO PRN (09:16)
[2017-10-06] MEDS ORDERED: LACTULOSE 20 GM/30 ML UDCUP PO PRN (09:16)
[2017-10-06] MEDS ORDERED: DIPHENOXYLATE/ATROPINE LOMOTIL 1 TAB PO PRN (09:16)
[2017-10-06] MEDS ORDERED: POLYETHYLENE GLYCOL 3350 17 GM PKT PO PRN (09:16)
[2017-10-06] MEDS ORDERED: LABETALOL HCL 5 MG/ML 20 ML MDV IVP ONE (09:30)
[2017-10-06] MEDS ORDERED: LR 1,000 ML IV SCH (09:30)
--- NOTE | 2017-10-06 09:32 | POSTANESTH ---
Post Anesthetic Evaluation Cardiovascular Status: Similar to Pre-Op Cond Respiratory Status: Normal, Stable Level of Consciousness/Mental Status: Mildly Sleepy, Arousable Pain Control: Adequate, Prn Tx Ordered Nausea/Vomiting Control: Adequate, Prn Tx Ordered Complications Possibly Related to Anesthesia: None Noted (Adductor cannal block performed in pacu. good visualization tolerated well no complications.)
[2017-10-06] MEDS ORDERED: HYDROmorphONE/DILAUDID 1 MG/ML INJ ONE (09:35)
[2017-10-06] MEDS: HYDROmorphONE/DILAUDID 1 MG/ML INJ IVP PRN ×5 (09:38→10:18)
--- NOTE | 2017-10-06 09:54 | GOP ---
[f rep st] OPERATIVE REPORT DATE OF OPERATION: 10/06/2017 SURGEON: German Malik MD TOOLMAKER HELPER: Bora Pulliam STEM LEAD FORMER, and Benji Moran, PAC. ANESTHESIA: General and adductor canal block by Dr. Christoph Lyaton. PREOPERATIVE DIAGNOSIS: Left knee severe degenerative arthritis with valgus deformity. POSTOPERATIVE DIAGNOSIS: Left knee severe degenerative arthritis with valgus deformity. PROCEDURE PERFORMED: Left total knee arthroplasty, cemented, Coronel and Nephew Journey II, posterior stabilized. FINDINGS: DESCRIPTION OF PROCEDURE: The patient was given 2 g of preoperative IV Ancef within 60 minutes of castro rgery. He also received IV tranexamic acid at a dose of 10 mg/kg. He was placed on the operating ro om table and given general anesthesia. He declined the offer of spinal anesthesia. A Rick catheter was not used. He wore a DARRIN stocking and SCD on the nonoperative leg. His left lower extremity was prepped with ChloraPrep from the upper thigh tourniquet to the tips of the toes. It was draped free using sterile sheets, stockinette, and Ioban plastic adhesive drape. The lower leg was wrapped with compressive Coban. The leg was exsanguinated with elevation and a 6-inch compressive wrap, and the tourniquet was inflated to 275 mmHg. The World Health Organization time-out was performed to verify the correct patient identity and the c orrect surgical side and site. The Bradford time-out was also performed. The Fleecsayo leg holding device was sterilely attached to the operating room table and used throughout the procedure to help position the knee. A straight midline incision was made centered on the patell a. Subcutaneous tissues were sharply divided, and hemostasis was obtained using electrocautery. A m edial subcutaneous flap was developed, and the capsule and synovium were opened in a medial parapatel lar fashion. Extensive degenerative changes were present in the lateral compartment and in the sandoval lofemoral joint. He had eroded bone on the lateral tibial plateau, and the lateral facet of the wells llofemoral joint was eroded down to subchondral bone. The medial capsule and periosteum were elevate d off the rim of the medial tibial plateau all the way around to the posteromedial corner. His media l collateral ligament was lightly released. I released the IT band off the lateral rim of the patell a. In order to improve exposure, his patella was prepared first. His patella was eroded, and the origin al thickness was only 19 mm. Peripheral osteophytes were removed. I cut a flat surface on the back of the patella. It was sized for a 38 mm resurfacing component. Because of the thinness of the wells lla, I made a very shallow flat cut. The composite thickness of the remaining bone plus the thicknes s of the patellar component was 22 mm. The intramedullary alignment guide system was used to set up the distal femoral cut. The distal femu r was cut in 5 degrees of valgus. He had full extension, preoperatively, and I did not make a +2 mm cut. The sizing jig was used to determine proper femoral sizing. I had to shift the size 5 jig ante riorly 2 mm in order to avoid notching the anterior cortex. The 5-in-1 cutting block was applied, and the anterior and posterior condylar cuts and chamfer cuts w ere made. The final jig was used to remove the central portion of the distal femur to accommodate th e posterior-stabilized femoral component. I was careful to determine proper rotation by referencing off Whitesides line and other bony anatomy. Each cut was checked for accuracy before and after it wa s made. The femur was sized for a size 5 posterior-stabilized component. The trial component was ta pped securely into place and was a good fit. Next, the tibia was prepared. The proximal tibial cut was made using the extramedullary alignment gu amy system. The cut was made in a few degrees of posterior slope. I was careful to achieve proper v arus/valgus alignment and proper rotation. The posterior compartment was cleared of meniscal remnant s. Osteophytes were removed from the back of the femoral condyles. I checked the flexion and extens ion gaps, and they were equal and balanced. The tibia was sized for a size 4 component. With the trial components in place, I selected an 11 mm polyethylene posterior-stabilized tibial insert. The knee came to full extension and flexed to 125 d egrees. Because of his preoperative valgus alignment, he was still a little tight laterally. I then partially released the popliteus and the fibular collateral ligament off the lateral femoral condyle . This gave me a balance to medial and lateral soft tissues. The trial patellar button was applied, and tracking was checked. Tracking was excellent without any digital pressure. 40 mL of the joint anesthetic cocktail was injected into the posterior capsule, the periarticular str uctures, the quadriceps muscle and tendon areas, and the subcutaneous tissues along the skin edges. A second dose of IV tranexamic acid was given at a dose of 10 mg/kg. The surfaces were prepared for cementing. They were carefully cleaned with the pulsating lavage irri gation and thoroughly dried. The CarboJet device was used to blow dry the cancellous surfaces. A do uble batch of high-viscosity methylmethacrylate cement with 2 g of powdered vancomycin added was mixe d. While it was still in a semi liquid state, all [address] components were cemented in place. Excess cemen t was removed before it hardened. The 11 mm trial tibial insert was re-tried and was the proper thickness. The actual component was in serted and locked into place. The knee was thoroughly irrigated one final time with a dilute Betadin e solution. The tourniquet was deflated. Total tourniquet time was 50 minutes. The vastus medialis portion of the extensor mechanism was repaired with several interrupted figure-of -eight #2 FiberWire sutures. The capsule and synovium were closed first with multiple interrupted fi [id number] PDS sutures, followed by a running #2 barbed Ethicon Stratafix PDO suture. Subcutane ous tissues were closed with a running 0 barbed Ethicon Stratafix Monoderm suture. The skin was clos ed with a running 3-0 barbed Ethicon Stratafix Monoderm subcuticular suture. The skin was sealed wit h half-inch Steri-Strips. The wound was covered with Xeroform gauze and flat 4x4s, and the knee was wrapped with Kerlix and a 6-inch compressive wrap. A long-leg DARRIN stocking and SCD were applied, fol lowed by the cooling device. The patient wore a stocking and SCD on the opposite leg during the proc edure. I used a size 5 cemented Coronel and Nephew Oxinium posterior-stabilized femoral component, size 4 ceme nted tibial base plate, an 11 mm posterior-stabilized tibial insert, and a 38 mm cemented round all-p olyethylene resurfacing patellar component. The estimated blood loss following deflation of the tourniquet was about 100 mL. The sponge and need le counts were correct on 2 occasions. He was awakened from anesthesia, transferred to his rcawood, a nd taken to PACU in satisfactory condition. There were no recognized intraoperative complications. In the PACU, for additional postoperative pain control, Dr. Layton performed an adductor canal block. Bora Pulliam and Benji Moran acted as surgical assistants. Their assistance was a medical necess ity for safe completion of the procedure. /[id number]/MODL
[2017-10-06] MEDS: ACETAMINOPHEN 325 MG TAB PO SCH ×3 (12:20→23:34)
[2017-10-06] MEDS: ceFAZolin 2 GM/DEXTROSE 100 ML IV SCH ×2 (15:13→23:34)
[2017-10-06] MEDS: oxyCODONE IR 5 MG TAB PO PRN (16:50)
[2017-10-06] MEDS ORDERED: ZOLPIDEM TARTRATE 5 MG TAB PO SCH (21:00)
[2017-10-06] MEDS ORDERED: DOXEPIN HCL PO SCH (21:00)
[2017-10-06] MEDS ORDERED: ROSUVASTATIN CALCIUM 10 MG TAB PO SCH (21:00)
[2017-10-06] MEDS: BUDESONIDE/FORMOTEROL 160/4.5 60 PUFFS/MDI IH SCH (21:06)
[2017-10-06] MEDS: SENNOSIDES/DOCUSATE SODIUM TAB PO SCH (21:16)
[2017-10-06] MEDS: ASPIRIN 325 MG TAB PO SCH (21:16)
[2017-10-06] MEDS: FAMOTIDINE 20 MG TAB PO SCH (21:43)
[2017-10-07] MEDS: oxyCODONE IR 5 MG TAB PO PRN (04:52)
[2017-10-07] MEDS: ACETAMINOPHEN 325 MG TAB PO SCH (04:53)
[2017-10-07 05:22] LABS: HEMATOCRIT 27.4 % (40.0-51.0); HEMOGLOBIN 9.9 g/dL (13.7-17.5)
[2017-10-07] MEDS: BUDESONIDE/FORMOTEROL 160/4.5 60 PUFFS/MDI IH SCH (08:15)
--- NOTE | 2017-10-07 08:25 | SOAPPROG ---
SOAP Progress Note Assessment/Plan: Assessment: Afebrile. Awake and alert. He has been walking in the room. Mild pain. He is voiding spontaneously. He already has good knee range of motion. His hemoglobin and hematocrit are low, but acceptable. They were low preoperatively. Postop films look excellent. Plan: Physical therapy today for walking in the william and stairs. [facility]charged to a [facility] facility later today. 10/07/17 08:24 Objective: Vital Signs Temp Pulse Resp BP Pulse Ox 36.7 C 69 17 169/86 H 99 10/07/17 04:00 10/07/17 04:00 10/07/17 04:00 10/07/17 04:00 10/07/17 04:00 Laboratory Results 10/07/17 05:10 10/06/17 10/07/17 10/08/17 05:59 05:59 05:59 Intake Total 2900 Output Total 400 Balance 2500 ICD10 Worksheet Patient Problems: Problems Problem Status Onset Osteoarthritis of left knee Acute Chest pain Acute Hypertensive urgency Acute
[2017-10-07 08:28] VITALS: PULSE 74; RESP 16
[2017-10-07 08:36] VITALS: BP 122/81; TEMP 97.7; O2SAT 94
[2017-10-07] MEDS: FAMOTIDINE 20 MG TAB PO SCH (08:40)
[2017-10-07] MEDS: ASPIRIN 325 MG TAB PO SCH (08:41)
[2017-10-07] MEDS: SENNOSIDES/DOCUSATE SODIUM TAB PO SCH (08:41)
[2017-10-07] MEDS: METOPROLOL SUCCINATE XR 50 MG TAB PO SCH ×2 (08:41→09:25)
--- NOTE | 2017-10-07 08:59 | PDIAF ---
- Diagnosis Diagnosis: left knee OA Code Status: Full Code - Medication Management Discharge Medications: Medications to Continue on Transfer Herbals/Supplements -Info Only 1 ea PO DAILY 06/10/17 [Last Taken 07/12/17] Ramipril [Altace 2.5mg (*)] 2.5 mg PO DAILY 06/10/17 [Last Taken 10/06/17 03:30] Rosuvastatin Calcium [Crestor 5mg] 5 mg PO HS 06/10/17 [Last Taken 10/06/17 03: 30] Doxepin HCl 0.3 ml PO HS 08/08/17 [Last Taken 10/05/17] Melatonin [Melatonin 5 mg] 5 mg PO HS 08/08/17 [Last Taken 10/05/17] Metoprolol Succinate Xr [Toprol Xl 50 mg (*)] 75 mg PO DAILY 08/08/17 [Last Taken 10/06/17 03:30] Zolpidem Tartrate [Ambien 10 mg] 10 mg PO HS 08/08/17 [Last Taken 10/05/17] Loperamide HCl [Imodium 2 mg (*)] 2 mg PO PRN PRN 09/05/17 [Last Taken 10/06/17 03:30] Budesonide/Formoterol 160/4.5 [Symbicort 160-4.5 Mcg Inh (*)] 2 puffs IH BID [Last Taken Unknown] Tiotropium Inhaler [Spiriva Inhaler (RX)] 18 mcg IH DAILY 10/06/17 [Last Taken Unknown] Acetaminophen [Tylenol 325mg (*)] 650 mg PO Q6HRS tab 10/07/17 [Last Taken Unknown] Aspirin [Aspirin 325 mg (*)] 325 mg PO DAILY tab 10/07/17 [Last Taken Unknown] Ferrous Sulfate [Slow Fe 140 MG (*)] 140 mg PO DAILY tab.er 10/07/17 [Last Taken Unknown] Ondansetron Odt [Zofran Odt 4 mg (*)] 4 mg PO Q4HRS PRN tab 10/07/17 [Last Taken Unknown] Sennosides/Docusate Sodium [Senokot-S] 1 - 2 tab PO BID tab 10/07/17 [Last Taken Unknown] celeCOXIB [Celebrex (*)] 200 mg PO DAILY cap 10/07/17 [Last Taken Unknown] oxyCODONE IR [Oxycodone Ir (*)] 5 - 10 mg PO Q3HRS PRN tab 10/07/17 [Last Taken Unknown] traMADol [Ultram 50 mg (*)] 50 mg PO Q6HRS PRN tab 10/07/17 [Last Taken Unknown ] Discharge Medications: Refer to the Discharge Home Medication list for PRN reason. PICC Care - Routine: N/A - Orders Services needed: Physical Therapy Diet Recommendation: no restrictions on diet Diet Texture: Regular Texture Diet Tru Stockings Discontinue Date: 1 week Activity/Weight Bearing Restrictions: as tolerated Equipment: Zero knee while in bed as tolerated. - Follow Up Care Current Providers and Referrals: Christoph Sweeney MD [Primary Care Provider] - German Malik MD [Medical Doctor] - 10/21/17
[2017-10-07] MEDS ORDERED: RAMIPRIL 2.5 MG CAP PO SCH (09:00)
[2017-10-07] MEDS ORDERED: TIOTROPIUM INHALER 18 MCG/DOSE 5 DOSE/MDI IH SCH (09:00)
[2017-10-07] MEDS ORDERED: FERROUS SULFATE 140 MG TAB.ER PO SCH (09:00)
--- NOTE | 2017-10-07 09:44 | ASMTCMCOM ---
CM Note CM Note Notes: Chart reviewed. Met with patient to review POC. He had CJR yesterday. Toured [facility] prior to surgery and wishes to rehab there. Referral sent and patient accepted. Transport at 11 am. RN texted report line and discharge time. CM available should other needs arise. Date Signed: 10/07/2017 09:43 AM Electronically Signed By:Felisha Alvarado RN
--- NOTE | 2017-10-07 11:48 | ASDISCHSUM ---
Discharge Information Plan Status:SNF Medically Cleared to Leave:10/06/2017 Discharge Date:10/07/2017 11:11 AM CM D/C Disposition:[facility] Facility ADT D/C Disposition:[facility] Facility Projected Discharge Date:10/07/2017 11:00 AM Transportation at D/C:Wheelchair Van Discharge Delay Reason: Follow-Up Date:10/07/2017 11:00 AM Discharge Slot: Final Diagnosis: Placement Information Referral Type:*[facility]/SNF Referral ID:[id number]-[id number] Provider Name:[facility] Address 1:[address] Address 2: City:[place] Selection Factors: State:[place] Patient Contact Information Contact Name:STAR Relationship:Friend Address: Work Phone: City: [facility] Phone: [facility] [[email or web address] Code: Email: Financial Information Financial Class: Primary Plan Desc:MEDICARE INPATIENT Primary Plan Number:[id number] Secondary Plan Desc:[facility] Secondary Plan Number:[id number] Assessment Information LACE LACE Length of stay for Answers: 1 day current admission Acuity / Level of Care Answers: No. Emergency dept visits in Answers: 0 last 6 months Score: 1 Date Signed: 10/07/2017 09:41 AM Electronically Signed By:Felisha Alvarado RN [facility] Progress Note CM Note CM Note Notes: Chart reviewed. Met with patient to review POC. He had CJR yesterday. [facility] prior to surgery and wishes to rehab there. Referral sent and patient accepted. Transport at 11 am. RN texted report line and discharge time. CM available should other needs arise. Date Signed: 10/07/2017 09:43 AM Electronically Signed By:Felisha Alvarado RN Case Management Discharge Plan Note Case Management Discharge Discharge Order Complete? Answers: Yes Patient to Obtain Answers: Other Notes: [facility] Medications Transportation Arranged Answers: Other Notes: [facility] Transport will Pick (Date 10/07/2017 11:00 AM & Time) Agency/Facility Transfer Answers: Yes Report Printed & Faxed to Receiving Agency Family Notified Answers: No Intervention Information
== END 2017-10-07 11:11 | DRG 470 ==
LOC: F3N 05:17
PROVIDERS: ADMIT Orthopaedic Surgery; ATTEND Orthopaedic Surgery
PROC: 0SRD0J9 Replacement of Left Knee Joint with Synthetic Substitute, Cemented, Open Approach (ICD-10-PCS; principal; 2017-10-06 07:15)
DX: M17.12 Unilateral primary osteoarthritis, left knee (principal); M21.062 Valgus deformity, not elsewhere classified, left knee; I10 Essential (primary) hypertension; J44.9 Chronic obstructive pulmonary disease, unspecified; Z95.1 Presence of aortocoronary bypass graft; G47.33 Obstructive sleep apnea (adult) (pediatric); G47.31 Primary central sleep apnea; I25.10 Atherosclerotic heart disease of native coronary artery without angina pectoris; Z85.118 Personal history of other malignant neoplasm of bronchus and lung
CPT/HCPCS: 97161-GP; 97165-GO; C1713; G8978-GP-CJ; G8979-GP-CI; G8987-GO-CK; G8988-GO-CH; J0171; J0360; J0690; J1100; J1170; J1885; J2250; J2370; J2405; J2704; J2780; J2795; J3010; J3370; J3490

== ENCOUNTER 2018-04-06 21:43 | Emergency (ER) | payer BC ==
--- NOTE | 2018-04-06 22:03 | CPEKG ---
Heart Rate: 56 RR Interval: 1071 P-R Interval: 276 QRSD Interval: 96 QT Interval: 464 QTC Interval: 448 P Kingston: 40 QRS Kingston: 36 T Wave Kingston: 78 EKG Severity - ABNORMAL ECG - EKG Impression: SINUS RHYTHM EKG Impression: FIRST DEGREE AV BLOCK Electronically Signed By: Tierney Gomez 07-Apr-2018 05:09:20
[2018-04-06] MEDS ORDERED: NS 500 ML IV ONE (22:29)
[2018-04-06 22:35] LABS: PLATELET COUNT 382 10^3/uL (150-400)
--- NOTE | 2018-04-06 23:00 | EDPHY ---
H & P Stated Complaint: was walking and had a syncope episode Time Seen by Provider: 04/06/18 22:22 HPI/ROS: HPI The patient presents with episode of ALOC which occurred earlier today. The patient had eaten breakfast and was lying in bed when he heard the doorbell ring. He got up to answer the door and then while standing he felt as if he was going to fall, he fell backwards though friends who answered the door caught him. He said before this he felt very lightheaded. He was able then to sit down with his friends any lunch, however upon standing from the table he began to feel lightheaded again. Upon the urging of a friend, he comes to the emergency department for evaluation. He does not have any chest pain, shortness of breath, palpitations. He was seen in the emergency department for a syncopal episode which happened in September of 2017. He had a normal evaluation at that time. He does not have any new medications. He says he has been eating and drinking usually.. REVIEW OF SYSTEMS Constitutional: No fever, no chills. Eyes: No discharge. ENT: No sore throat. Cardiovascular: No chest pain, no palpitations. Respiratory: No cough, no shortness of breath. Gastrointestinal: No abdominal pain, no vomiting. Genitourinary: No hematuria. Musculoskeletal: No back pain. Skin: No rashes. Neurological: No headache. PMHx: CAD status post CABG, hypertension, ANGELA with CPAP machine, COPD Soc Hx: Housed with roommate PHYSICAL General Appearance: Alert, no distress Eyes: Pupils equal and round no pallor or injection ENT, Mouth: Mucous membranes moist Respiratory: There are no retractions, lungs are clear to auscultation Cardiovascular: Regular rate and rhythm Gastrointestinal: Abdomen is soft and non-tender, no masses, bowel sounds normal Neurological: A&O, moves all extremities Skin: Warm and dry, no rashes Musculoskeletal: Neck is supple non tender Extremities: symmetrical, full range of motion Psychiatric: Patient is oriented X 3, there is no agitation Source: Patient Exam Limitations: No limitations - Personal History Current Tetanus/Diphtheria Vaccine: Yes Current Tetanus Diphtheria and Acellular Pertussis (TDAP): Yes - Medical/Surgical History Hx Asthma: No Hx Chronic Respiratory Disease: Yes Hx Diabetes: No Hx Cardiac Disease: Yes Hx Renal Disease: No Hx Cirrhosis: No Hx Alcoholism: No Hx HIV/AIDS: No Hx Splenectomy or Spleen Trauma: No Other PMH: ANGELA-CPAP w/O2, CABG; GERD, lung ca, arthritis,gastritis, diverticulitis; COPD; HTN; CAD; insomnia; R TKA 2012; appy - Social History Smoking Status: Former smoker Constitutional: Initial Vital Signs Temperature (C) 36.5 C 04/06/18 21:52 Heart Rate 59 L 04/06/18 21:52 Respiratory Rate 16 04/06/18 21:52 Blood Pressure 94/63 L 04/06/18 21:52 O2 Sat (%) 96 04/06/18 21:52 O2 Delivery Mode Room Air Allergies/Adverse Reactions: No Known Allergies Allergy (Verified 04/06/18 21:54) Home Medications: Medication Instructions Recorded Ramipril [Altace 2.5mg (*)] 2.5 mg PO DAILY 06/10/17 Rosuvastatin Calcium [Crestor 5mg] 5 mg PO HS 06/10/17 Metoprolol Succinate Xr [Toprol Xl 75 mg PO DAILY 08/08/17 50 mg (*)] Tiotropium Inhaler [Spiriva 18 mcg IH DAILY 10/06/17 Inhaler (RX)] Aspirin [Aspirin 325 mg (*)] 325 mg PO DAILY tab 10/07/17 celeCOXIB [Celebrex (*)] 200 mg PO DAILY cap 10/07/17 Medical Decision Making - Diagnostics EKG Interpretation: EKG: Complete interpretation has been separately recorded in the [facility] archive. Summary impression: 1st degree AV block, no ST segment change Imaging Results: Imaging Impressions Chest X-Ray 04/06/18 22:29 Impression: No evidence for acute cardiopulmonary abnormality. Stable chronic findings as above. Imaging: I viewed and interpreted images myself Differential Diagnosis: This is a 77-year-old man with past medical history of CAD status post CABG, hypertension, COPD, obstructive sleep apnea who presents from home with syncopal versus presyncopal episode earlier today with preceding lightheadedness. This was after standing to answer the door. He had a recurrent episode when standing after eating lunch. He now denies any symptoms. Differential diagnosis includes arrhythmia, electrolyte disturbance, dehydration , anemia. In the emergency department, patient was monitored on the compliance monitor without any events. He continued to feel well and denies any ongoing complaints. He was given IV fluids. Labs were checked and were unremarkable. Given his recurrent syncope, I recommended admission to the hospital. Patient declines as he is concerned about cost of hospitalization. I explained to him that he could have another event at home which could be serious and could even result in . He accepts this risk and says that he will follow up with his primary care doctor tomorrow. I believe this is reasonable. He will go home with a friend. - Data Points Laboratory Results: Laboratory Results 04/06/18 22:00 04/06/18 22:00 04/06/18 04/06/18 22:00 22:00 WBC 9.53 10^3/uL H 10^3/uL (3.80-9.50) RBC 4.07 10^6/uL L 10^6/uL (4.40-6.38) Hgb 12.6 g/dL L g/dL (13.7-17.5) Hct 36.9 % L % (40.0-51.0) MCV 90.7 fL fL (81.5-99.8) MCH 31.0 pg pg (27.9-34.1) MCHC 34.1 g/dL g/dL (32.4-36.7) RDW 13.2 % % (11.5-15.2) Plt Count 382 10^3/uL 10^3/uL (150-400) MPV 9.1 fL fL (8.7-11.7) Neut % (Auto) 73.1 % % (39.3-74.2) Lymph % (Auto) 13.9 % L % (15.0-45.0) Archer % (Auto) 8.6 % % (4.5-13.0) Eos % (Auto) 2.5 % % (0.6-7.6) Baso % (Auto) 1.2 % % (0.3-1.7) Nucleat RBC Rel Count 0.0 % % (0.0-0.2) Absolute Neuts (auto) 6.97 10^3/uL H 10^3/uL (1.70-6.50) Absolute Lymphs (auto) 1.32 10^3/uL 10^3/uL (1.00-3.00) Absolute Monos (auto) 0.82 10^3/uL H 10^3/uL (0.30-0.80) Absolute Eos (auto) 0.24 10^3/uL 10^3/uL (0.03-0.40) Absolute Basos (auto) 0.11 10^3/uL H 10^3/uL (0.02-0.10) Absolute Nucleated RBC 0.00 10^3/uL 10^3/uL (0-0.01) Immature Gran % 0.7 % % (0.0-1.1) Immature Gran # 0.07 10^3/uL 10^3/uL (0.00-0.10) Sodium 135 mEq/L mEq/L (135-145) Potassium 4.4 mEq/L mEq/L (3.3-5.0) Chloride 102 mEq/L mEq/L (97-110) Carbon Dioxide 21 mEq/l L mEq/l (22-31) Anion Gap 12 mEq/L mEq/L (8-16) BUN 19 mg/dL mg/dL (7-23) Creatinine 1.2 mg/dL mg/dL (0.7-1.3) Estimated GFR 59 Glucose 77 mg/dL mg/dL (70-100) Calcium 9.3 mg/dL mg/dL (8.5-10.4) Troponin I < 0.012 ng/mL ng/mL (0.000-0.034) Medications Given: Discontinued Medications Sodium Chloride (Ns) 500 mls @ 0 mls/hr IV EDNOW ONE; Wide Open PRN Reason: Protocol Stop: 04/06/18 22:30 Last Admin: 04/06/18 22:58 Dose: 500 mls Departure - Departure Disposition: Home, Routine, Self-Care Clinical Impression: Pre-syncope Condition: Good Instructions: Near Syncope (ED) Additional Instructions: Please return to the emergency department if you are worse in any way would like to be admitted for these episodes. I would like for you to follow up with your primary care doctor in 1-2 days for recheck. Referrals: Christoph Sweeney MD [Primary Care Provider] - As per Instructions
[2018-04-07 00:36] VITALS: BP 187/102
== END 2018-04-07 00:34 | disposition home or self-care (01) ==
DX: R55 Syncope and collapse (principal); I25.810 Atherosclerosis of coronary artery bypass graft(s) without angina pectoris; I10 Essential (primary) hypertension; J44.9 Chronic obstructive pulmonary disease, unspecified; E86.9 Volume depletion, unspecified; Z79.82 Long term (current) use of aspirin; Z85.118 Personal history of other malignant neoplasm of bronchus and lung; Z87.891 Personal history of nicotine dependence